=== PATIENT | male | born 1985 | race African-American/Black ===

== ENCOUNTER 2017-08-20 20:16 | Emergency (ER) | payer SELFPAY ==
[~2017-08-20] VITALS: Ht 185.4 cm; Wt 70.5 kg
[2017-08-20 21:05] VITALS: BP 108/68
== END 2017-08-21 01:15 | disposition left against medical advice (07) ==
LOC: ER 20:16
DX: H53.8 Other visual disturbances (principal); R51 Headache; Z53.21 Procedure and treatment not carried out due to patient leaving prior to being seen by health care provider